=== PATIENT | male | born 1955 | race African-American/Black ===

== ENCOUNTER 2023-01-22 09:27 | Outpatient (CLI) | payer OTHER, MEDICAID | END 2023-01-22 09:28 | disposition home or self-care (01) | LOC: BICULT 09:27 | PROVIDERS: ATTEND Student in an Organized Health Care Education/Training Program | DX: R63.4 Abnormal weight loss (principal); Z72.0 Tobacco use | CPT/HCPCS: 76705 ==

== ENCOUNTER 2023-06-11 23:10 | Emergency (ER) | payer OTHER | END 2023-06-12 01:00 | disposition home or self-care (01) | LOC: ERS 23:10 | DX: B02.9 Zoster without complications (principal) | CPT/HCPCS: 99282 ==